=== PATIENT | male | born 1940 | race Caucasian/White ===

== ENCOUNTER 2021-07-11 19:53 | Observation (INO) ==
--- NOTE | 2021-07-11 20:14 | Emergency Department Note ---
History of Present Illness General Chief complaint: Syncope Time Seen by Provider: 07/11/21 19:57 Source: patient and EMS History of Present Illness Provider complaint: Altered mental status syncope versus seizure Onset (ago): hour(s) 1 Associated symptoms: no chest pain, no cough, no fever/chills, no headaches, no nausea/vomiting or no shortness of breath 81-year-old male presents emergency department via EMS. Per EMS they received a phone call approximately 1 hour ago that the patient should not was at a local grocery store and he went unresponsive. EMS reports that the call initially stated the patient had decreased respirations, decreased blood pressure, and decreased heart rate, the patient urinated on self and his left arm was tensed up. EMS states when they arrived, the patient was responsive, his blood pressure was normal, his heart rate was normal, his respiratory rate was normal and the patient was in no acute distress. Patient states he does not remember what happened. There is no reported history of fall or trauma from bystanders or EMS. Patient states he does not have any medical problems does not see a doctor. Home Medications Medication Instructions Recorded Confirmed Type ascorbic acid (vitamin C) 500 mg 0 mg PO DAILY 07/11/21 07/11/21 History tablet (Vitamin C) glucosamine-chondroitin 250 mg-200 1 tab PO DAILY 07/11/21 07/11/21 History mg tablet (Osteo Bi-Flex) ibuprofen 200 mg tablet 400 mg PO DIRECTED PRN 07/11/21 07/11/21 History multivitamin 1 tab PO DAILY 07/11/21 07/11/21 History Allergies Allergy/AdvReac Type Severity Reaction Status Date / Time No Known Allergies Allergy Verified 07/11/21 20:30 Past Med/Surg History Medical History (Updated 07/11/21 @ 22:52 by Minh Crespo) Age related osteoporosis No pertinent family history Surgical History (Updated 07/11/21 @ 20:13 by Minh Crespo) S/P cholecystectomy Social History Feels Safe at Home: Yes Review of Systems A total of 10 systems reviewed and were otherwise negative Physical Exam Vital Signs Vital Signs - 24 hr 07/11/21 20:09 07/11/21 20:31 07/11/21 21:34 Temperature 36.9 C Temperature Source Oral Pulse Rate 73 74 Pulse Rate [Right Finger] 74 68 Pulse Rhythm Regular Pulse Strength Normal Respiratory Rate 15 15 15 Respiratory Effort / Characteristics Non-Labored Respiratory Depth Normal Normal Respiratory Pattern Regular Blood Pressure 181/112 H Blood Pressure [Right Arm] 194/104 H 202/106 H Blood Pressure Mean 135 Blood Pressure Mean [Right Arm] 134 138 Blood Pressure Position [Right Arm] Sitting Pulse Oximetry 96 97 94 Oxygen Delivery Method Room Air Room Air Room Air Sepsis New/Unexplained Change in Mental Status Yes Sepsis Action Taken by Nursing No Action Required Physical Exam GENERAL: He is oriented to person, place, and time. He appears well-developed and well-nourished. He does not appear distressed. HENT: Exam performed. - Head: Normocephalic and atraumatic. - Right Ear: External ear normal. No mastoid tenderness. - Left Ear: External ear normal. No mastoid tenderness. - Mouth/Throat: The oropharynx is clear and moist. No trismus in the jaw. No dental abscesses or uvula swelling. No oropharyngeal exudate or tonsillar abscesses. EYES: Conjunctivae and EOM are normal. Pupils are equal, round, and reactive to light. Right eye exhibits no discharge. Left eye exhibits no discharge. No scleral icterus. NECK: Normal range of motion. Neck supple. No JVD present. No spinous process tenderness present. No carotid bruit present. No rigidity. No tracheal deviation and normal range of motion present. No Brudzinski's sign and no Kernig's sign noted. CV: Normal rate, regular rhythm, normal heart sounds and intact distal pulses. There is no peripheral edema. Palpable radial pulses bue. PULM/CHEST: Effort normal and breath sounds normal. No respiratory distress. No stridor. He has no wheezes. He has no rales. - Chest Wall: He exhibits no tenderness. ABD: The abdomen is soft. Bowel sounds are normal. He has no distension. No mass is present. There is no tenderness. There is no rebound, no guarding, no Solorio's sign and no tenderness at McBurney's point. Rovsig negative. MUSC/SKEL: Normal range of motion. There is no peripheral edema, tenderness or deformity. LYMPH: No cervical adenopathy. NEURO: He is alert and oriented to person, place, and time. He has normal strength. No cranial nerve deficit or sensory deficit. Coordination and gait normal. GCS eye subscore is 4. GCS verbal subscore is 5. GCS motor subscore is 6. Cerebellar tests wnl. SKIN: Skin is warm and dry. He is not diaphoretic. PSYCH: He has a normal mood and affect. Behavior is normal. Judgment and thought content normal. Course Course 1956: The patient was evaluated in room A11. A complete history and physical exam was performed Cardiac monitoring: An order was placed for continuous cardiac monitoring. The monitor shows a rate of 80 with sinus rhythm 2232: Vital signs stable. Labs within normal limits with exception of creatinine 1.6 and lactic acid 2.1. Prolactin level within normal. Imaging within normal limits. Is unclear if the patient has syncopal episode versus seizure. It does seem more likely of a seizure given the reported history of urinary incontinence and the elevated lactic acid level. Patient has no fever or elevated white blood cell count I think that the lactic acidemia is due to any infectious source. Patient is remained neurologically intact not reporting any headaches chest pain or difficulty breathing during his entire emergency department stay. Patient's son is at bedside. The son, the patient, and I had a long discussion about the patient's disposition and the patient does not have a regular care with primary care physician. Given his increased age and the questionable syncope versus seizure the son, the patient, and I felt it would be in the patient's best interest to be admitted for further work-up. Spoke with [facility] hospitalist Dr. Altamirano who will evaluate the patient for admission. Administered Medications Lactated Ringer's (Lr) 1,000 mls @ 60 mls/hr IV .[id number] ONE Stop: 07/12/21 14:48 Last Admin: 07/11/21 22:45 Dose: 60 mls/hr Documented by: [id number] Discontinued Medications Amlodipine Besylate (Amlodipine Besylate 5 Mg Tab) 2.5 mg PO NOW ONE Stop: 07/11/21 22:09 Last Admin: 07/11/21 22:45 Dose: 2.5 mg Documented by: [id number] Medical Decision Making Laboratory Data Result diagrams: 07/11/21 20:17 07/11/21 20:17 Lab Results 07/11/21 07/11/21 07/11/21 Range/Units 20:17 20:17 20:17 WBC 8.09 (4.8-10.8) K/uL RBC 4.59 L (4.7-6.1) M/uL Hgb 14.7 (14.0-18.0) g/dL Hct 43.2 (42-52) % MCV 94.1 (80-100) fL MCH 32.0 (25-34) pg MCHC 34.0 (32-36) g/dL RDW Std Deviation 45.1 (36.4-46.3) fL RDW Coeff of Preethi 13.1 (11.5-14.5) % Plt Count 251 (130-400) K/uL MPV 10.0 (7.4-10.4) fL Immature Gran % (Auto) 0.1 % Neut % (Auto) 53.6 % Lymph % (Auto) 33.1 % [place] % (Auto) 7.3 % Eos % (Auto) 5.3 % Baso % (Auto) 0.6 % Neut # (Auto) 4.33 (1.4-6.5) K/uL Lymph # (Auto) 2.68 (1.2-3.4) K/uL [place] # (Auto) 0.59 (0.11-0.59) K/uL Eos # (Auto) 0.43 (0-0.5) K/uL Baso # (Auto) 0.05 (0-0.2) K/uL Immature Gran # (Auto) 0.01 (0.00-0.02) K/uL PT 10.3 (9.0-12.0) Seconds INR 1.0 (0.9-1.1) APTT 24.2 (21.0-31.0) Seconds PTT Ratio 0.9 Sodium 143 (136-145) mmol/L Potassium 3.7 (3.5-5.1) mmol/L Chloride 109 H (98-107) mmol/L Carbon Dioxide 26 (21-32) mmol/L Anion Gap 8.0 (3-11) BUN 23 H (7-18) mg/dl Creatinine 1.61 H (0.6-1.4) mg/dl Est Cr Clr Drug Dosing 49.3 ml/min Est GFR ( Amer) 45.8 ml/min Est GFR (Non-Af Amer) 39.5 ml/min BUN/Creatinine Ratio 14.0 (10-20) Glucose 128 H (70-99) mg/dl POC Glucose (70-99) mg/dl Lactate (0.4-2.0) mmol/L Calcium 8.5 (8.5-10.1) mg/dl Magnesium 2.3 (1.8-2.4) mg/dl Total Bilirubin 0.5 (0.2-1) mg/dl Direct Bilirubin 0.1 (0-0.2) mg/dl AST 26 (15-37) U/L ALT 24 (12-78) U/L Alkaline Phosphatase 106 (45-117) U/L Troponin I < 0.015 (0-0.045) ng/ml Total Protein 7.4 (6.4-8.2) gm/dl Albumin 3.3 L (3.4-5.0) gm/dl Lipase (73-393) U/L TSH (0.300-4.500) uIu/ml Prolactin ng/ml Urine Color Urine Appearance (Clear) Urine pH (4.5-7.5) Ur Specific [place] (1.000-1.030) Urine Protein (Negative) Urine Glucose (UA) (Negative) Urine Ketones (Negative) Urine Blood (Negative) Urine Nitrite (Negative) Urine Bilirubin (Negative) Urine Urobilinogen (Negative) Ur Leukocyte Esterase (Negative) SARS-CoV-2, RNA, NAAT (NEGATIVE) 07/11/21 07/11/21 07/11/21 Range/Units 20:17 20:17 20:17 WBC (4.8-10.8) K/uL RBC (4.7-6.1) M/uL Hgb (14.0-18.0) g/dL Hct (42-52) % MCV (80-100) fL MCH (25-34) pg MCHC (32-36) g/dL RDW Std Deviation (36.4-46.3) fL RDW Coeff of Preethi (11.5-14.5) % Plt Count (130-400) K/uL MPV (7.4-10.4) fL Immature Gran % (Auto) % Neut % (Auto) % Lymph % (Auto) % [place] % (Auto) % Eos % (Auto) % Baso % (Auto) % Neut # (Auto) (1.4-6.5) K/uL Lymph # (Auto) (1.2-3.4) K/uL [place] # (Auto) (0.11-0.59) K/uL Eos # (Auto) (0-0.5) K/uL Baso # (Auto) (0-0.2) K/uL Immature Gran # (Auto) (0.00-0.02) K/uL PT (9.0-12.0) Seconds INR (0.9-1.1) APTT (21.0-31.0) Seconds PTT Ratio Sodium (136-145) mmol/L Potassium (3.5-5.1) mmol/L Chloride (98-107) mmol/L Carbon Dioxide (21-32) mmol/L Anion Gap (3-11) BUN (7-18) mg/dl Creatinine (0.6-1.4) mg/dl Est Cr Clr Drug Dosing ml/min Est GFR ( Amer) ml/min Est GFR (Non-Af Amer) ml/min BUN/Creatinine Ratio (10-20) Glucose (70-99) mg/dl POC Glucose (70-99) mg/dl Lactate 2.1 H* (0.4-2.0) mmol/L Calcium (8.5-10.1) mg/dl Magnesium (1.8-2.4) mg/dl Total Bilirubin (0.2-1) mg/dl Direct Bilirubin (0-0.2) mg/dl AST (15-37) U/L ALT (12-78) U/L Alkaline Phosphatase (45-117) U/L Troponin I (0-0.045) ng/ml Total Protein (6.4-8.2) gm/dl Albumin (3.4-5.0) gm/dl Lipase 200 (73-393) U/L TSH (0.300-4.500) uIu/ml Prolactin 9.88 ng/ml Urine Color Urine Appearance (Clear) Urine pH (4.5-7.5) Ur Specific [place] (1.000-1.030) Urine Protein (Negative) Urine Glucose (UA) (Negative) Urine Ketones (Negative) Urine Blood (Negative) Urine Nitrite (Negative) Urine Bilirubin (Negative) Urine Urobilinogen (Negative) Ur Leukocyte Esterase (Negative) SARS-CoV-2, RNA, NAAT (NEGATIVE) 07/11/21 07/11/21 07/11/21 Range/Units 20:17 20:30 22:40 WBC (4.8-10.8) K/uL RBC (4.7-6.1) M/uL Hgb (14.0-18.0) g/dL Hct (42-52) % MCV (80-100) fL MCH (25-34) pg MCHC (32-36) g/dL RDW Std Deviation (36.4-46.3) fL RDW Coeff of Preethi (11.5-14.5) % Plt Count (130-400) K/uL MPV (7.4-10.4) fL Immature Gran % (Auto) % Neut % (Auto) % Lymph % (Auto) % [place] % (Auto) % Eos % (Auto) % Baso % (Auto) % Neut # (Auto) (1.4-6.5) K/uL Lymph # (Auto) (1.2-3.4) K/uL [place] # (Auto) (0.11-0.59) K/uL Eos # (Auto) (0-0.5) K/uL Baso # (Auto) (0-0.2) K/uL Immature Gran # (Auto) (0.00-0.02) K/uL PT (9.0-12.0) Seconds INR (0.9-1.1) APTT (21.0-31.0) Seconds PTT Ratio Sodium (136-145) mmol/L Potassium (3.5-5.1) mmol/L Chloride (98-107) mmol/L Carbon Dioxide (21-32) mmol/L Anion Gap (3-11) BUN (7-18) mg/dl Creatinine (0.6-1.4) mg/dl Est Cr Clr Drug Dosing ml/min Est GFR ( Amer) ml/min Est GFR (Non-Af Amer) ml/min BUN/Creatinine Ratio (10-20) Glucose (70-99) mg/dl POC Glucose 114 H (70-99) mg/dl Lactate (0.4-2.0) mmol/L Calcium (8.5-10.1) mg/dl Magnesium (1.8-2.4) mg/dl Total Bilirubin (0.2-1) mg/dl Direct Bilirubin (0-0.2) mg/dl AST (15-37) U/L ALT (12-78) U/L Alkaline Phosphatase (45-117) U/L Troponin I (0-0.045) ng/ml Total Protein (6.4-8.2) gm/dl Albumin (3.4-5.0) gm/dl Lipase (73-393) U/L TSH 2.830 (0.300-4.500) uIu/ml Prolactin ng/ml Urine Color Urine Appearance (Clear) Urine pH (4.5-7.5) Ur Specific [place] (1.000-1.030) Urine Protein (Negative) Urine Glucose (UA) (Negative) Urine Ketones (Negative) Urine Blood (Negative) Urine Nitrite (Negative) Urine Bilirubin (Negative) Urine Urobilinogen (Negative) Ur Leukocyte Esterase (Negative) SARS-CoV-2, RNA, NAAT NEGATIVE (NEGATIVE) 07/11/21 Range/Units 22:40 WBC (4.8-10.8) K/uL RBC (4.7-6.1) M/uL Hgb (14.0-18.0) g/dL Hct (42-52) % MCV (80-100) fL MCH (25-34) pg MCHC (32-36) g/dL RDW Std Deviation (36.4-46.3) fL RDW Coeff of Preethi (11.5-14.5) % Plt Count (130-400) K/uL MPV (7.4-10.4) fL Immature Gran % (Auto) % Neut % (Auto) % Lymph % (Auto) % [place] % (Auto) % Eos % (Auto) % Baso % (Auto) % Neut # (Auto) (1.4-6.5) K/uL Lymph # (Auto) (1.2-3.4) K/uL [place] # (Auto) (0.11-0.59) K/uL Eos # (Auto) (0-0.5) K/uL Baso # (Auto) (0-0.2) K/uL Immature Gran # (Auto) (0.00-0.02) K/uL PT (9.0-12.0) Seconds INR (0.9-1.1) APTT (21.0-31.0) Seconds PTT Ratio Sodium (136-145) mmol/L Potassium (3.5-5.1) mmol/L Chloride (98-107) mmol/L Carbon Dioxide (21-32) mmol/L Anion Gap (3-11) BUN (7-18) mg/dl Creatinine (0.6-1.4) mg/dl Est Cr Clr Drug Dosing ml/min Est GFR ( Amer) ml/min Est GFR (Non-Af Amer) ml/min BUN/Creatinine Ratio (10-20) Glucose (70-99) mg/dl POC Glucose (70-99) mg/dl Lactate (0.4-2.0) mmol/L Calcium (8.5-10.1) mg/dl Magnesium (1.8-2.4) mg/dl Total Bilirubin (0.2-1) mg/dl Direct Bilirubin (0-0.2) mg/dl AST (15-37) U/L ALT (12-78) U/L Alkaline Phosphatase (45-117) U/L Troponin I (0-0.045) ng/ml Total Protein (6.4-8.2) gm/dl Albumin (3.4-5.0) gm/dl Lipase (73-393) U/L TSH (0.300-4.500) uIu/ml Prolactin ng/ml Urine Color Yellow Urine Appearance Clear (Clear) Urine pH 5.0 (4.5-7.5) Ur Specific [place] 1.015 (1.000-1.030) Urine Protein Negative (Negative) Urine Glucose (UA) Negative (Negative) Urine Ketones Negative (Negative) Urine Blood Negative (Negative) Urine Nitrite Negative (Negative) Urine Bilirubin Negative (Negative) Urine Urobilinogen Negative (Negative) Ur Leukocyte Esterase Negative (Negative) SARS-CoV-2, RNA, NAAT (NEGATIVE) Imaging Data Radiologist's Impression: Chest X-Ray 07/11/21 20:08 XR chest 1V portable CLINICAL HISTORY: ams. Evaluate cardiopulmonary status COMPARISON STUDY: No previous studies for comparison. TECHNIQUE: 1 view of the chest FINDINGS: Single frontal view of the chest demonstrates the cardiomediastinal silhouette to be within normal limits. There is a decreased inspiratory effort with elevation of the hemidiaphragms and crowding of the bronchovascular markings at the lung bases and centrally. The lungs are clear of alveolar opacities. There is no evidence for pleural effusion. There is no evidence for vascular congestion. There is no acute osseous pathology. IMPRESSION: There is a decreased inspiratory effort with otherwise no acute chest disease. ACT 112: Negative or not required by law. Electronically signed by: Eyad Cespedes M.D. 07/11/2021 8:[address] 07/11/21 20:08 CT head/brain wo con CLINICAL HISTORY: syncope vs seizure COMPARISON STUDY: No previous studies for comparison. CT DOSE: 1878.68 mGy.cm TECHNIQUE: Standard CT of the Brain was performed without IV contrast. A dose lowering technique was utilized adhering to the principles of ALARA. FINDINGS: Extraaxial space: There is no evidence for subdural hematoma. There are no extra-axial fluid collections. Ventricles and cisterns: The ventricles are normal in size and configuration. There is no evidence for midline shift or mass effect. Parenchyma: There is no subarachnoid or intraparenchymal hemorrhage. There is no evidence for an acute infarct or cerebral edema. There is homogeneous attenuation of the brain parenchyma. There are no gross mass lesions. Osseous structures: There is no evidence for an acute fracture. The visualized paranasal sinuses are clear. The mastoid air cells are clear bilaterally. Soft tissues: There is no evidence for focal soft tissue swelling. IMPRESSION: No acute intracerebral pathology. ACT 112: Negative or not required by law. Electronically signed by: Eyad Cespedes M.D. 07/11/2021 9:01 PM ECG Data Indication: + syncope Rate (beats per minute): 76 Rhythm: + normal sinus ECG ST segments: + Normal ST segments ECG Findings: + LVH Additional Comments: [place] 200 QRS 148 QTC 477 bifascicular block present. MDM Narrative Vital signs stable. Labs within normal limits with exception of creatinine 1.6 and lactic acid 2.1. Prolactin level within normal. Imaging within normal limits. Is unclear if the patient has syncopal episode versus seizure. It does seem more likely of a seizure given the reported history of urinary incontinence and the elevated lactic acid level. Patient has no fever or elevated white blood cell count I think that the lactic acidemia is due to any infectious source. Patient is remained neurologically intact not reporting any headaches chest pain or difficulty breathing during his entire emergency department stay. Patient's son is at bedside. The son, the patient, and I had a long discussion about the patient's disposition and the patient does not have a regular care with primary care physician. Given his increased age and the questionable syncope versus seizure the son, the patient, and I felt it would be in the patient's best interest to be admitted for further work-up. Spoke with [facility] hospitalist Dr. Altamirano who will evaluate the patient for admission. Impression & Plan Observed seizure-like activity Discharge Plan Visit Data Chief Complaint: Syncope ED Provider: Minh Crespo Discharge Problem: Observed seizure-like activity Patient Disposition: Being Evaluated by Hospitalist Forms Stand Alone Forms: My [facility] Prescriptions Prescriptions: No Action multivitamin Tablet 1 tab PO DAILY RF: 0 ascorbic acid (vitamin C) [Vitamin C] 500 mg Tablet 0 mg PO DAILY RF: 0 ibuprofen 200 mg Tablet 400 mg PO DIRECTED PRN (Reason: Pain) RF: 0 glucosamine-chondroitin [Osteo Bi-Flex] 250-200 mg Tablet 1 tab PO DAILY RF: 0 Referrals Referrals: PCP,NO [Physician] -
[2021-07-11 20:29] LABS: Basophils # (auto) 0.05 K/uL (0-0.2); Basophils % (auto) 0.6 %; Eosinophils # (auto) 0.43 K/uL (0-0.5); Eosinophils % (auto) 5.3 %; Hematocrit (blood only) 43.2 % (42-52); Hemoglobin 14.7 g/dL (14.0-18.0); Immature Granulocytes # (auto) 0.01 K/uL (0.00-0.02); Immature Granulocytes % (auto) 0.1 %; Lymphocytes # (auto) 2.68 K/uL (1.2-3.4); Lymphocytes % (auto) 33.1 %; Mean Corpuscular Volume 94.1 fL (80-100); Monocytes # (auto) 0.59 K/uL (0.11-0.59); Monocytes % (auto) 7.3 %; Neutrophils # (auto) 4.33 K/uL (1.4-6.5); Neutrophils % (auto) 53.6 %; Platelet Count 251 K/uL (130-400); RDW Coefficient of Variation 13.1 % (11.5-14.5); RDW Standard Deviation 45.1 fL (36.4-46.3); Red Blood Count 4.59 M/uL (4.7-6.1); White Blood Count 8.09 K/uL (4.8-10.8)
[2021-07-11 20:42] LABS: Partial Thromboplastin Ratio 0.9; Partial Thromboplastin Time 24.2 Seconds (21.0-31.0); Prothrombin Time 10.3 Seconds (9.0-12.0)
--- NOTE | 2021-07-11 20:45 | XRay Report ---
XR chest 1V portable CLINICAL HISTORY: ams. Evaluate cardiopulmonary status COMPARISON STUDY: No previous studies for comparison. TECHNIQUE: 1 view of the chest FINDINGS: Single frontal view of the chest demonstrates the cardiomediastinal silhouette to be within normal li mits. There is a decreased inspiratory effort with elevation of the hemidiaphragms and crowding of th e bronchovascular markings at the lung bases and centrally. The lungs are clear of alveolar opacities . There is no evidence for pleural effusion. There is no evidence for vascular congestion. There is n o acute osseous pathology. IMPRESSION: There is a decreased inspiratory effort with otherwise no acute chest disease. ACT 112: Negative or not required by law. Electronically signed by: Eyad Cespedes M.D. 07/11/2021 8:44 PM
[2021-07-11 20:55] LABS: Alanine Aminotransferase 24 U/L (12-78); Albumin Level 3.3 gm/dl (3.4-5.0); Aspartate Aminotransferase 26 U/L (15-37); Bilirubin Direct 0.1 mg/dl (0-0.2); Blood Urea Nitrogen 23 mg/dl (7-18); Calcium 8.5 mg/dl (8.5-10.1); Carbon Dioxide 26 mmol/L (21-32); Chloride 109 mmol/L (98-107); Creatinine Clr Calc Pharmacy 49.3 ml/min; Est GFR (African American) 45.8 ml/min; Est GFR (Non-African American) 39.5 ml/min; Glucose 128 mg/dl (70-99); Magnesium 2.3 mg/dl (1.8-2.4); Potassium 3.7 mmol/L (3.5-5.1); Sodium 143 mmol/L (136-145)
[2021-07-11 21:00] LABS: Alkaline Phosphatase 106 U/L (45-117); Bilirubin,Total 0.5 mg/dl (0.2-1); Total Protein 7.4 gm/dl (6.4-8.2); Troponin I < 0.015 ng/ml (0-0.045)
--- NOTE | 2021-07-11 21:03 | CT Scan Report ---
CT head/brain wo con CLINICAL HISTORY: syncope vs seizure COMPARISON STUDY: No previous studies for comparison. CT DOSE: 1878.68 mGy.cm TECHNIQUE: Standard CT of the Brain was performed without IV contrast. A dose lowering technique was utilized adhering to the principles of ALARA. FINDINGS: Extraaxial space: There is no evidence for subdural hematoma. There are no extra-axial fluid collecti ons. Ventricles and cisterns: The ventricles are normal in size and configuration. There is no evidence f or midline shift or mass effect. Parenchyma: There is no subarachnoid or intraparenchymal hemorrhage. There is no evidence for an acu te infarct or cerebral edema. There is homogeneous attenuation of the brain parenchyma. There are no gross mass lesions. Osseous structures: There is no evidence for an acute fracture. The visualized paranasal sinuses are clear. The mastoid air cells are clear bilaterally. Soft tissues: There is no evidence for focal soft tissue swelling. IMPRESSION: No acute intracerebral pathology. ACT 112: Negative or not required by law. Electronically signed by: Eyad Cespedes M.D. 07/11/2021 9:01 PM
[2021-07-11] MEDS ORDERED: amLODIPine BESYLATE 5 MG TAB PO ONE (22:08)
[2021-07-11] MEDS ORDERED: LACTATED RINGER'S 1,000 ML IV ONE (22:09)
[2021-07-11 23:01] LABS: Thyroid Stimulating Hormone 2.83 uIu/ml (0.300-4.500)
--- NOTE | 2021-07-11 23:06 | History & Physical Report ---
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 Heparin subcu Full code Patient son requesting updates from providers. Mr. Eduardo Flowers, contact #[phone]. Text document was generated using [email or web address] voice recognition software. It may contain grammatical or spelling errors. Kindly contact undersigned for clarification of any documentation item in question. History of Present Illness Chief Complaint: Unresponsiveness as per records Primary Care Provider: MORAIMA ARECHIGA PA-C History obtained from patient, family, and records. History somewhat limited from patient secondary to hearing impairment. Medical history significant for hypertension (currently not on medications), osteoarthritis. Patient was at dining with his buddies at a local grocery/sandwich shop when he became unresponsive for about 10 minutes as per son. May have passed out as per patient. Patient did not fall down. Eyes closed with pulse and breathing as per son. No witnessed seizures although patient left arm somewhat tensed up during event. No witnessed seizures/incontinence as per patient/son. Patient denies headache, chest pain, S OB symptoms. Syncopal event with unrecalled details of few years ago as per patient. Patient awake, responsive and with normal vital signs upon arrival of EMS. Orthostatic vitals at the ER were positive. 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 Allergies Allergy/AdvReac Type Severity Reaction Status Date / Time No Known Allergies Allergy Verified 07/11/21 20:30 Home Medications Medication Instructions Recorded Confirmed Type ascorbic acid (vitamin C) 500 mg 0 mg PO DAILY 07/11/21 07/11/21 History tablet (Vitamin C) glucosamine-chondroitin 250 mg-200 1 tab PO DAILY 07/11/21 07/11/21 History mg tablet (Osteo Bi-Flex) ibuprofen 200 mg tablet 400 mg PO DIRECTED PRN 07/11/21 07/11/21 History multivitamin 1 tab PO DAILY 07/11/21 07/11/21 History Past Med/Surg History Medical History (Updated 07/12/21 @ 05:43 by Gregor Adkins MD) Age related osteoporosis No pertinent family history Surgical History (Updated 07/11/21 @ 20:13 by Minh Crespo) S/P cholecystectomy Social History Smoking Status: Never smoker Hx Alcohol Use: No Hx Substance Use: No Preferred Language: Filipino 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 Beliefs That Will Affect Care: None Current Living Situation: Alone Feels Safe at Home: Yes Safety Concerns: Feels Safe At This Time Assistive Devices: None Assistive Devices Comment: pt wears glasses for driving Review of Systems Review of Systems: As per HPI, all 10 systems reviewed, all other ROS negative Physical Exam Physical Exam: GENERAL: Comfortable, obese, hard of hearing, no respiratory distress SKIN: Normal color, warm HEENT: [place] palpebral conjunctivae, no ptosis, dry buccal mucosa NECK : Supple, no tenderness CHEST : CTA, no tenderness HEART : RRR, no obvious murmurs ABDOMEN: Some distention, nontender EXTREMITIES : No LE swelling/tenderness, no other conspicuous deformities noted NEUROLOGIC : Coherent, no facial asymmetry, hard of hearing, no other gross focality Results & Data Results & Data ([facility]) Vital Signs (Past 12 Hours) Vital Signs Temp Pulse Pulse Resp BP BP Pulse Ox 07/11/21 21:34 68 15 202/106 H 94 07/11/21 20:31 74 74 15 194/104 H 97 07/11/21 20:09 36.9 C 73 15 181/112 H 96 Laboratory Results Laboratory Results WBC 8.09 K/uL (4.8-10.8) 07/11/21 20:17 RBC 4.59 M/uL (4.7-6.1) L 07/11/21 20:17 Hgb 14.7 g/dL (14.0-18.0) 07/11/21 20:17 Hct 43.2 % (42-52) 07/11/21 20:17 MCV 94.1 fL (80-100) 07/11/21 20:17 MCH 32.0 pg (25-34) 07/11/21 20:17 MCHC 34.0 g/dL (32-36) 07/11/21 20:17 RDW Std Deviation 45.1 fL (36.4-46.3) 07/11/21 20:17 RDW Coeff of Preethi 13.1 % (11.5-14.5) 07/11/21 20:17 Plt Count 251 K/uL (130-400) 07/11/21 20:17 MPV 10.0 fL (7.4-10.4) 07/11/21 20:17 Immature Gran % (Auto) 0.1 % 07/11/21 20:17 Neut % (Auto) 53.6 % 07/11/21 20:17 Lymph % (Auto) 33.1 % 07/11/21 20:17 Meagher % (Auto) 7.3 % 07/11/21 20:17 Eos % (Auto) 5.3 % 07/11/21 20:17 Baso % (Auto) 0.6 % 07/11/21 20:17 Neut # (Auto) 4.33 K/uL (1.4-6.5) 07/11/21 20:17 Lymph # (Auto) 2.68 K/uL (1.2-3.4) 07/11/21 20:17 Meagher # (Auto) 0.59 K/uL (0.11-0.59) 07/11/21 20:17 Eos # (Auto) 0.43 K/uL (0-0.5) 07/11/21 20:17 Baso # (Auto) 0.05 K/uL (0-0.2) 07/11/21 20:17 Immature Gran # (Auto) 0.01 K/uL (0.00-0.02) 07/11/21 20:17 PT 10.3 Seconds (9.0-12.0) 07/11/21 20:17 INR 1.0 (0.9-1.1) 07/11/21 20:17 APTT 24.2 Seconds (21.0-31.0) 07/11/21 20:17 PTT Ratio 0.9 07/11/21 20:17 Sodium 143 mmol/L (136-145) 07/11/21 20:17 Potassium 3.7 mmol/L (3.5-5.1) 07/11/21 20:17 Chloride 109 mmol/L (98-107) H 07/11/21 20:17 Carbon Dioxide 26 mmol/L (21-32) 07/11/21 20:17 Anion Gap 8.0 (3-11) 07/11/21 20:17 BUN 23 mg/dl (7-18) H 07/11/21 20:17 Creatinine 1.61 mg/dl (0.6-1.4) H 07/11/21 20:17 Est Cr Clr Drug Dosing 49.3 ml/min 07/11/21 20:17 Est GFR ( Amer) 45.8 ml/min 07/11/21 20:17 Est GFR (Non-Af Amer) 39.5 ml/min 07/11/21 20:17 BUN/Creatinine Ratio 14.0 (10-20) 07/11/21 20:17 Glucose 128 mg/dl (70-99) H 07/11/21 20:17 POC Glucose 114 mg/dl (70-99) H 07/11/21 20:30 Lactate 2.1 mmol/L (0.4-2.0) H* 07/11/21 20:17 Calcium 8.5 mg/dl (8.5-10.1) 07/11/21 20:17 Magnesium 2.3 mg/dl (1.8-2.4) 07/11/21 20:17 Total Bilirubin 0.5 mg/dl (0.2-1) 07/11/21 20:17 Direct Bilirubin 0.1 mg/dl (0-0.2) 07/11/21 20:17 AST 26 U/L (15-37) 07/11/21 20:17 ALT 24 U/L (12-78) 07/11/21 20:17 Alkaline Phosphatase 106 U/L (45-117) 07/11/21 20:17 Troponin I < 0.015 ng/ml (0-0.045) 07/11/21 20:17 Total Protein 7.4 gm/dl (6.4-8.2) 07/11/21 20:17 Albumin 3.3 gm/dl (3.4-5.0) L 07/11/21 20:17 Lipase 200 U/L (73-393) 07/11/21 20:17 TSH 2.830 uIu/ml (0.300-4.500) 07/11/21 20:17 Prolactin 9.88 ng/ml 07/11/21 20:17 Impressions Chest X-Ray 07/11/21 20:08 XR chest 1V portable CLINICAL HISTORY: ams. Evaluate cardiopulmonary status COMPARISON STUDY: No previous studies for comparison. TECHNIQUE: 1 view of the chest FINDINGS: Single frontal view of the chest demonstrates the cardiomediastinal silhouette to be within normal limits. There is a decreased inspiratory effort with elevation of the hemidiaphragms and crowding of the bronchovascular markings at the lung bases and centrally. The lungs are clear of alveolar opacities. There is no evidence for pleural effusion. There is no evidence for vascular congestion. There is no acute osseous pathology. IMPRESSION: There is a decreased inspiratory effort with otherwise no acute chest disease. ACT 112: Negative or not required by law. Electronically signed by: Eyad Cespedes M.D. 07/11/2021 8:[address] 07/11/21 20:08 CT head/brain wo con CLINICAL HISTORY: syncope vs seizure COMPARISON STUDY: No previous studies for comparison. CT DOSE: 1878.68 mGy.cm TECHNIQUE: Standard CT of the Brain was performed without IV contrast. A dose lowering technique was utilized adhering to the principles of ALARA. FINDINGS: Extraaxial space: There is no evidence for subdural hematoma. There are no extra-axial fluid collections. Ventricles and cisterns: The ventricles are normal in size and configuration. There is no evidence for midline shift or mass effect. Parenchyma: There is no subarachnoid or intraparenchymal hemorrhage. There is no evidence for an acute infarct or cerebral edema. There is homogeneous attenuation of the brain parenchyma. There are no gross mass lesions. Osseous structures: There is no evidence for an acute fracture. The visualized paranasal sinuses are clear. The mastoid air cells are clear bilaterally. Soft tissues: There is no evidence for focal soft tissue swelling. IMPRESSION: No acute intracerebral pathology. ACT 112: Negative or not required by law. Electronically signed by: Eyad Cespedes M.D. 07/11/2021 9:01 PM Diagnostic Findings EKG as per my interpretation:Rate 75, LAD, LAFB, RBBB, LVH, no ischemia
[2021-07-11 23:19] LABS: Appearance Urine Clear (Clear); Bilirubin Urine Negative (Negative); Blood Urine Negative (Negative); Color Urine Yellow; Glucose Urine UA Negative (Negative); Ketones Urine Negative (Negative); Leukocyte Esterase Urine Negative (Negative); Nitrite Urine Negative (Negative); Protein Urine Negative (Negative); Specific Gravity Urine 1.015 (1.000-1.030); Urobilinogen Urine Negative (Negative)
[2021-07-12] MEDS ORDERED: hydrALAZINE HCL 20 MG/ML VIAL IV STA (01:03)
[2021-07-12] MEDS ORDERED: amLODIPine BESYLATE 5 MG TAB PO ONE (01:03)
[2021-07-12] MEDS ORDERED: ACETAMINOPHEN 325 MG TAB PO PRN (02:35)
[2021-07-12] MEDS ORDERED: LORazepam 1 MG/2 ML VIAL IV PRN (02:35)
[2021-07-12 03:15] LABS: Basophils # (auto) 0.04 K/uL (0-0.2); Basophils % (auto) 0.5 %; Eosinophils # (auto) 0.24 K/uL (0-0.5); Eosinophils % (auto) 2.9 %; Hematocrit (blood only) 39.8 % (42-52); Hemoglobin 13.7 g/dL (14.0-18.0); Immature Granulocytes # (auto) 0.01 K/uL (0.00-0.02); Immature Granulocytes % (auto) 0.1 %; Lymphocytes # (auto) 2.15 K/uL (1.2-3.4); Mean Corpuscular Hemoglobin 31.8 pg (25-34); Mean Corpuscular Hgb Conc 34.4 g/dL (32-36); Mean Corpuscular Volume 92.3 fL (80-100); Mean Platelet Volume 9.6 fL (7.4-10.4); Monocytes # (auto) 0.56 K/uL (0.11-0.59); Monocytes % (auto) 6.8 %; Neutrophils # (auto) 5.26 K/uL (1.4-6.5); Neutrophils % (auto) 63.7 %; Platelet Count 220 K/uL (130-400); RDW Standard Deviation 44.4 fL (36.4-46.3); Red Blood Count 4.31 M/uL (4.7-6.1); White Blood Count 8.26 K/uL (4.8-10.8)
[2021-07-12 03:32] LABS: BUN Creatinine Ratio 16.7 (10-20); Calcium 8.7 mg/dl (8.5-10.1); Est GFR (African American) 54.2 ml/min; Est GFR (Non-African American) 46.8 ml/min; Potassium 3.5 mmol/L (3.5-5.1)
[2021-07-12] MEDS: HEPARIN SOD 5,000 UNIT/0.5 ML VIAL SQ SCH ×3 (06:12→21:33)
[2021-07-12] MEDS: MULTIVITAMIN TAB PO SCH (07:34)
[2021-07-12 07:46] LABS: Estimated Average Glucose 111 mg/dl; Hemoglobin A1C 5.5 % (4.5-5.6)
--- NOTE | 2021-07-12 08:53 | Electrocardiogram Report ---
Test Reason : Blood Pressure : / mmHG Vent. Rate : 076 BPM Atrial Rate : 076 BPM P-R Int : 200 ms QRS Dur : 148 ms QT Int : 424 ms P-R-T Axes : 033 -79 036 degrees QTc Int : 477 ms Poor data quality, interpretation may be adversely affected Normal sinus rhythm Right bundle branch block Left anterior fascicular block Bifascicular block Moderate voltage criteria for LVH, may be normal variant Abnormal ECG No previous ECGs available Confirmed by Contreras Aj ([id number]) on 07/12/2021 8:52:33 AM Referred By: REFERRED SELF Confirmed By:Lg Aj
[2021-07-12] MEDS ORDERED: amLODIPine BESYLATE 5 MG TAB PO SCH (09:00)
--- NOTE | 2021-07-12 13:18 | Hospitalist Progress Note ---
Date of Service July 12, 2021 Assessment & Plan (1) Hypertensive urgency: Plan: Hydralazine 10mg IV and amlodipine total 7.5mg PO given overnight. BP still 177 systolic this am. Clinical picture is concerning for long-standing uncontrolled blood pressure with EKG changes. He gets his medical care in [place], [place] and records/vitals review is unavailable at this time. He denies any headache, chest pain or other symptoms. He reports chronic balance issues and positional orthostasis that are long-standing. last year and he lives alone. There are no other apparent infections or issues with glucose. He remains asymptomatic. At this time echo is pending. I feel he should stay in the hospital and be further evaluated by Cardiology, and started on a more successful blood pressure regimen (defer this to political research scientist) with a stable blo od pressure prior to dc to home. This will also given time for his echo to return. (2) Syncope: Plan: EMS reports that the call initially stated the patient had decreased respirations, decreased blood pressure, and decreased heart rate, the patient urinated on self and his left arm was tensed up. EMS states when they arrived, the patient was responsive, his blood pressure was normal, his heart rate was normal, his respiratory rate was normal and the patient was in no acute distress. Possible etiology include but not limited to seizure, vasovagal vs orthostatic syncope, postprandial glycemic changes, elevated blood pressure. Patient did have an elevated lactate in the ER suggestive of possible seizure. No witnesses available for comment at this time. Will consult neurology for thoughts. (3) Osteoarthritis: Plan: Takes Ibuprofen twice daily. Denies any stomach pain or blood in stool. Holding for now. (4) DVT prophylaxis: Plan: Lovenox Full Code Dispo-uncertain, pending eval by cardiology/neurology, eval by PT/OT and improvement in blood pressures. Would prefer home with home health at time of discharge. Ashley Morales DO [facility] Hospitalist. Admission and Anticipated Discharge Date Admission Date: July 11, 2021 Subjective 81 yo M with osteoarthritis and no other known medical problems presented via ambulance after an episode of syncope last evening. He reports sitting with friends for dinner at a local grocery store and had chicken fingers and trino slaw. He did not consume alcohol. He reported his vision getting blurry and subsequently remembers people around him calling his name. He didn't know what happened but he was clear. Denies any loss of bladder function. Denied any issues with word finding ability, no headache, SOB, no drooling or difficulty using arms or legs. Denies history of seizures or heart issues. He takes Motrin twice daily for chronic back pain but other pena denies any issues. Echo pending this am Telemetry reviewed with no events overnight. CT head was negative for acute intracranial abnormality BP remains elevated at 177/92 Review of Systems Review of Systems: All systems were reviewed and negative except as indicated in subjective above. Physical Exam Physical Exam: CONSTITUTIONAL: WNWD, vitals as above, generally well- appearing, NAD EYES: EOMI bilaterally, pupils are round and equal bilaterally, normal conjunctivae, no scleral icterus ENT: external ear and nose normal, MMM NECK: trachea midline, MMM RESPIRATORY: clear to auscultation bilaterally, no crackles, rales or wheezes, normal respiratory effort CARDIOVASCULAR: regular rate and rhythm, S1 and 2 heard without murmurs, gallops or rubs, no JVD, no peripheral edema, no carotid bruits CHEST: inspection of chest was normal GASTROINTESTINAL: soft, nontender, ND, no guarding MUSCULOSKELETAL: strength 5/5 throughout, head is normocephalic and atraumatic SKIN: warm and dry NEUROLOGIC: patellar DTRs 2+ bilat. No facial palsy, no dysarthria. Touch, pain and proprioception normal. CN 2-12 grossly intact, no sensory deficit, normal cognition, normal speech, no tremor. Heel to ovalle normal. Gait not assessed. PSYCHIATRIC: alert cooperative and oriented to person, place and time. Euthymic mood, makes good eye contact, language grossly intact, recent and remote memory grossly intact. Results & Data Results & Data ([facility]) Vital Signs (Past 12 Hours) Vital Signs Temp Pulse Pulse Resp BP Pulse Ox 07/12/21 10:08 83 07/12/21 07:47 37 C 79 18 177/92 H 94 07/12/21 04:22 76 07/12/21 03:30 36.8 C 92 H 20 140/77 95 07/12/21 02:44 36.8 C 90 18 196/100 H 97 07/12/21 01:51 91 H 15 138/80 97 Laboratory Results Short CBC 07/11/21 07/12/21 Range/Units 20:17 03:06 WBC 8.09 8.26 (4.8-10.8) K/uL Hgb 14.7 13.7 L (14.0-18.0) g/dL Hct 43.2 39.8 L (42-52) % Plt Count 251 220 (130-400) K/uL BMP 07/11/21 07/12/21 20:17 03:06 Sodium 143 142 Potassium 3.7 3.5 Chloride 109 H 111 H Carbon Dioxide 26 26 BUN 23 H 23 H Creatinine 1.61 H 1.40 Glucose 128 H 120 H Calcium 8.5 8.7 Cardiac Enzymes 07/11/21 07/11/21 Range/Units 20:17 20:17 Total Creatine Kinase 163 (39-308) U/L Troponin I < 0.015 (0-0.045) ng/ml Liver Function 07/11/21 Range/Units 20:17 Total Bilirubin 0.5 (0.2-1) mg/dl Direct Bilirubin 0.1 (0-0.2) mg/dl AST 26 (15-37) U/L ALT 24 (12-78) U/L Alkaline Phosphatase 106 (45-117) U/L Albumin 3.3 L (3.4-5.0) gm/dl Urine 07/11/21 Range/Units 22:40 Urine Color Yellow Urine Appearance Clear (Clear) Urine pH 5.0 (4.5-7.5) Ur Specific [place] 1.015 (1.000-1.030) Urine Protein Negative (Negative) Urine Glucose (UA) Negative (Negative) Medications Administered Current Inpatient Medications Acetaminophen (Acetaminophen 325 Mg Tab) 650 mg PO Q4H PRN PRN Reason: Pain or Fever Stop: 08/11/21 02:34 Amlodipine Besylate (Amlodipine Besylate 5 Mg Tab) 2.5 mg PO QAM [facility] Stop: 08/11/21 08:59 Last Admin: 07/12/21 07:34 Dose: 2.5 mg Documented by: Heparin Sodium (Porcine) (Heparin Sod 5,000 Unit/0.5 Ml Vial) 5,000 units SQ Q8 JASE Stop: 08/11/21 05:59 Last Admin: 07/12/21 06:12 Dose: 5,000 units Documented by: Lactated Ringer's (Lr) 1,000 mls @ 60 mls/hr IV .[id number] ONE Stop: 07/12/21 14:48 Last Admin: 07/11/21 22:45 Dose: 60 mls/hr Documented by: Lorazepam (Ativan) 1 mg in 2 mls @ 0.5 mls/min IV Q10M PRN PRN Reason: seizures Stop: 08/11/21 02:34 Multivitamins (Multivitamin Tab) [facility] Stop: 08/11/21 08:59 Last Admin: 07/12/21 07:34 Dose: 1 tab Documented by:
--- NOTE | 2021-07-12 13:40 | Electroencephalogram ---
EEG Procedure Note Date of Service July 12, 2021 Start / End Times Start Time: 09:35 End Time: 09:[address] Gregor Adkins History An 81-year-old male with unresponsive episode. EEG performed for evaluation epileptiform activity. Home Medication List Medication Instructions Recorded Confirmed Type ascorbic acid (vitamin C) 500 mg 0 mg PO DAILY 07/11/21 07/11/21 History tablet (Vitamin C) glucosamine-chondroitin 250 mg-200 1 tab PO DAILY 07/11/21 07/11/21 History mg tablet (Osteo Bi-Flex) ibuprofen 200 mg tablet 400 mg PO DIRECTED PRN 07/11/21 07/11/21 History multivitamin 1 tab PO DAILY 07/11/21 07/11/21 History Inpatient Medication List Amlodipine Besylate (Amlodipine Besylate 5 Mg Tab) 2.5 mg PO QAM [facility] Stop: 08/11/21 08:59 Last Admin: 07/12/21 07:34 Dose: 2.5 mg Documented by: [id number] Heparin Sodium (Porcine) (Heparin Sod 5,000 Unit/0.5 Ml Vial) 5,000 units SQ Q8 [facility] Stop: 08/11/21 05:59 Last Admin: 07/12/21 06:12 Dose: 5,000 units Documented by: [id number] Lactated Ringer's (Lr) 1,000 mls @ 60 mls/hr IV .[id number] ONE Stop: 07/12/21 14:48 Last Admin: 07/11/21 22:45 Dose: 60 mls/hr Documented by: [id number] Multivitamins (Multivitamin Tab) 1 tab PO [facility] Stop: 08/11/21 08:59 Last Admin: 07/12/21 07:34 Dose: 1 tab Documented by: [id number] Discontinued Medications Amlodipine Besylate (Amlodipine Besylate 5 Mg Tab) 2.5 mg PO NOW ONE Stop: 07/11/21 22:09 Last Admin: 07/11/21 22:45 Dose: 2.5 mg Documented by: [id number] Amlodipine Besylate (Amlodipine Besylate 5 Mg Tab) 2.5 mg PO NOW ONE Stop: 07/12/21 01:04 Last Admin: 07/12/21 01:26 Dose: 2.5 mg Documented by: [id number] Hydralazine HCl (Hydralazine Hcl 20 Mg/Ml Vial) 10 mg IV NOW STA Stop: 07/12/21 01:04 Last Admin: 07/12/21 01:27 Dose: 10 mg Documented by: [id number] Description This is a 21 electrode EEG with a single channel dedicated to limited EKG. The electrodes were placed in accordance with the International 10-20 system. REPORT: At the onset of the EEG the patient is drowsy. The background is symmetric. The posterior dominant rhythm is 8-9 Hz. There is intermittent electrode artifact noted in the right parasagittal head region. Drowsiness is characterized by increased theta activity, reduced blink rate, and decreased myogenic artifact. Photic stimulation does not induce any abnormalities. No stage 2 sleep transients are seen. Interpretation This is a normal awake and drowsy routine EEG. There is no evidence of epileptiform activity.
--- NOTE | 2021-07-12 14:58 | Cardiology Consultation ---
Date of Consultation July 12, 2021 Assessment & Plan (1) Syncope: The patient was mildly hypertensive when he was admitted and has been started on amlodipine. His blood pressure has improved he has no orthostasis. As mentioned his cardiac markers are negative and his echocardiogram shows no significant valvular pathology and normal right and left ventricular systolic function. 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 It is likely the patient may need a pacemaker in the future. I would recommend that he remains on telemetry while he is in the hospital. I would also recommend a long-term monitor after he is discharged. We will follow along with you during his hospital stay. History of Present Illness Attending Physician: Ashley Morales, DO History of Present Illness This is an 81-year-old male patient who is not much for medical care. He actually has minimal past medical history but does admit he avoids doctors. He states he was hypertensive for a while and took medications but has not taken blood pressure medicines for years. He was in his usual state of good health on the day of admission. He has breakfast with his buddies at a local diner and they solve the world's problems while they are eating. They were doing this activity and the patient states that he suddenly felt a little bit queasy and passed out. His daughter was there with a couple of firefighters/strategic marketing associate and the next thing he knows is that they were yelling for him when he woke up. He had no prodrome of paresthesias or paralysis. No residual neurologic effects. He had no heart palpitations or tachycardia. No chest pain or shortness of breath. He has no complaints now in the hospital. Cardiac markers are negative. He had echocardiogram completed this admission and for his age it is pretty unremar kable. His EKG does show a right bundle branch block and a left anterior hemiblock indicating he does have some conduction system disease which may have contributed to his syncope. Allergies Allergy/AdvReac Type Severity Reaction Status Date / Time No Known Allergies Allergy Verified 07/11/21 20:30 Home Medications Medication Instructions Recorded Confirmed Type ascorbic acid (vitamin C) 500 mg 0 mg PO DAILY 07/11/21 07/11/21 History tablet (Vitamin C) glucosamine-chondroitin 250 mg-200 1 tab PO DAILY 07/11/21 07/11/21 History mg tablet (Osteo Bi-Flex) ibuprofen 200 mg tablet 400 mg PO DIRECTED PRN 07/11/21 07/11/21 History multivitamin 1 tab PO DAILY 07/11/21 07/11/21 History Patient History Medical History Age related osteoporosis No pertinent family history Surgical History S/P cholecystectomy Social History Smoking Status: Never smoker Hx Alcohol Use: No Hx Substance Use: No Preferred Language: Lao [employer] 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 All other 10 point review of systems are negative. Physical Exam Physical Exam: General: no acute distress and stated age Head: normocephalic, no masses, lesions, tenderness or abnormalities Eyes: conjunctiva are pink and non-injected, sclera clear Neck: supple, no adenopathy, no bruits, normal jugular venous pulse, no hep atojugular reflux Chest: normal shape and normal respiratory effort Lungs: clear to auscultation and percussion Cardiac Exam: - regular rate & rhythm, no murmurs gallops or rubs - normal S1, normal S2 Pulses: 2(+) throughout Abdomen: abdomen soft, non-tender, no abnormal masses and no hepatosplenomegaly Musculoskeletal: no gait disturbance, no joint inflammation, no deforming arthritis Extremities: no edema and no cyanosis Neuro: grossly normal exam Results & Data ([facility]) Vital Signs (Past 12 Hours) Vital Signs Temp Pulse Pulse Resp BP Pulse Ox 07/12/21 14:13 36.8 C 77 18 121/74 07/12/21 10:08 83 07/12/21 07:47 37 C 79 18 177/92 H 94 07/12/21 04:22 76 07/12/21 03:30 36.8 C 92 H 20 140/77 95 Laboratory Results Laboratory Results - last 24 hr 07/11/21 07/11/21 07/11/21 20:17 20:17 20:17 WBC 8.09 RBC 4.59 L Hgb 14.7 Hct 43.2 MCV 94.1 MCH 32.0 MCHC 34.0 RDW Std Deviation 45.1 RDW Coeff of Preethi 13.1 Plt Count 251 MPV 10.0 Immature Gran % (Auto) 0.1 Neut % (Auto) 53.6 Lymph % (Auto) 33.1 Island % (Auto) 7.3 Eos % (Auto) 5.3 Baso % (Auto) 0.6 Neut # (Auto) 4.33 Lymph # (Auto) 2.68 Island # (Auto) 0.59 Eos # (Auto) 0.43 Baso # (Auto) 0.05 Immature Gran # (Auto) 0.01 PT 10.3 INR 1.0 APTT 24.2 PTT Ratio 0.9 Sodium 143 Potassium 3.7 Chloride 109 H Carbon Dioxide 26 Anion Gap 8.0 BUN 23 H Creatinine 1.61 H Est Cr Clr Drug Dosing 49.3 Est GFR ( Amer) 45.8 Est GFR (Non-Af Amer) 39.5 BUN/Creatinine Ratio 14.0 Glucose 128 H POC Glucose Estimat Average Glucose Hemoglobin A1c Lactate Calcium 8.5 Magnesium 2.3 Total Bilirubin 0.5 Direct Bilirubin 0.1 AST 26 ALT 24 Alkaline Phosphatase 106 Total Creatine Kinase Troponin I < 0.015 Total Protein 7.4 Albumin 3.3 L Lipase TSH Prolactin Urine Color Urine Appearance Urine pH Ur Specific [place] Urine Protein Urine Glucose (UA) Urine Ketones Urine Blood Urine Nitrite Urine Bilirubin Urine Urobilinogen Ur Leukocyte Esterase SARS-CoV-2, RNA, NAAT 07/11/21 07/11/21 07/11/21 20:17 20:17 20:17 WBC RBC Hgb Hct MCV MCH MCHC RDW Std Deviation RDW Coeff of Preethi Plt Count MPV Immature Gran % (Auto) Neut % (Auto) Lymph % (Auto) Island % (Auto) Eos % (Auto) Baso % (Auto) Neut # (Auto) Lymph # (Auto) Island # (Auto) Eos # (Auto) Baso # (Auto) Immature Gran # (Auto) PT INR APTT PTT Ratio Sodium Potassium Chloride Carbon Dioxide Anion Gap BUN Creatinine Est Cr Clr Drug Dosing Est GFR ( Amer) Est GFR (Non-Af Amer) BUN/Creatinine Ratio Glucose POC Glucose Estimat Average Glucose Hemoglobin A1c Lactate 2.1 H* Calcium Magnesium Total Bilirubin Direct Bilirubin AST ALT Alkaline Phosphatase Total Creatine Kinase Troponin I Total Protein Albumin Lipase 200 TSH Prolactin 9.88 Urine Color Urine Appearance Urine pH Ur Specific [place] Urine Protein Urine Glucose (UA) Urine Ketones Urine Blood Urine Nitrite Urine Bilirubin Urine Urobilinogen Ur Leukocyte Esterase SARS-CoV-2, RNA, NAAT 07/11/21 07/11/21 07/11/21 20:17 20:17 20:30 WBC RBC Hgb Hct MCV MCH MCHC RDW Std Deviation RDW Coeff of Preethi Plt Count MPV Immature Gran % (Auto) Neut % (Auto) Lymph % (Auto) Island % (Auto) Eos % (Auto) Baso % (Auto) Neut # (Auto) Lymph # (Auto) Island # (Auto) Eos # (Auto) Baso # (Auto) Immature Gran # (Auto) PT INR APTT PTT Ratio Sodium Potassium Chloride Carbon Dioxide Anion Gap BUN Creatinine Est Cr Clr Drug Dosing Est GFR ( Amer) Est GFR (Non-Af Amer) BUN/Creatinine Ratio Glucose POC Glucose 114 H Estimat Average Glucose 111 Hemoglobin A1c 5.5 Lactate Calcium Magnesium Total Bilirubin Direct Bilirubin AST ALT Alkaline Phosphatase Total Creatine Kinase 163 Troponin I Total Protein Albumin Lipase TSH 2.830 Prolactin Urine Color Urine Appearance Urine pH Ur Specific [place] Urine Protein Urine Glucose (UA) Urine Ketones Urine Blood Urine Nitrite Urine Bilirubin Urine Urobilinogen Ur Leukocyte Esterase SARS-CoV-2, RNA, NAAT 07/11/21 07/11/21 07/12/21 22:40 22:40 03:06 WBC RBC Hgb Hct MCV MCH MCHC RDW Std Deviation RDW Coeff of Preethi Plt Count MPV Immature Gran % (Auto) Neut % (Auto) Lymph % (Auto) Island % (Auto) Eos % (Auto) Baso % (Auto) Neut # (Auto) Lymph # (Auto) Island # (Auto) Eos # (Auto) Baso # (Auto) Immature Gran # (Auto) PT INR APTT PTT Ratio Sodium Potassium Chloride Carbon Dioxide Anion Gap BUN Creatinine Est Cr Clr Drug Dosing Est GFR ( Amer) Est GFR (Non-Af Amer) BUN/Creatinine Ratio Glucose POC Glucose Estimat Average Glucose Hemoglobin A1c Lactate 1.2 Calcium Magnesium Total Bilirubin Direct Bilirubin AST ALT Alkaline Phosphatase Total Creatine Kinase Troponin I Total Protein Albumin Lipase TSH Prolactin Urine Color Yellow Urine Appearance Clear Urine pH 5.0 Ur Specific [place] 1.015 Urine Protein Negative Urine Glucose (UA) Negative Urine Ketones Negative Urine Blood Negative Urine Nitrite Negative Urine Bilirubin Negative Urine Urobilinogen Negative Ur Leukocyte Esterase Negative SARS-CoV-2, RNA, NAAT NEGATIVE 07/12/21 07/12/21 03:06 03:06 WBC 8.26 RBC 4.31 L Hgb 13.7 L Hct 39.8 L MCV 92.3 MCH 31.8 MCHC 34.4 RDW Std Deviation 44.4 RDW Coeff of Preethi 13.0 Plt Count 220 MPV 9.6 Immature Gran % (Auto) 0.1 Neut % (Auto) 63.7 Lymph % (Auto) 26.0 Island % (Auto) 6.8 Eos % (Auto) 2.9 Baso % (Auto) 0.5 Neut # (Auto) 5.26 Lymph # (Auto) 2.15 Island # (Auto) 0.56 Eos # (Auto) 0.24 Baso # (Auto) 0.04 Immature Gran # (Auto) 0.01 PT INR APTT PTT Ratio Sodium 142 Potassium 3.5 Chloride 111 H Carbon Dioxide 26 Anion Gap 5.0 BUN 23 H Creatinine 1.40 Est Cr Clr Drug Dosing 56.0 Est GFR ( Amer) 54.2 Est GFR (Non-Af Amer) 46.8 BUN/Creatinine Ratio 16.7 Glucose 120 H POC Glucose Estimat Average Glucose Hemoglobin A1c Lactate Calcium 8.7 Magnesium Total Bilirubin Direct Bilirubin AST ALT Alkaline Phosphatase Total Creatine Kinase Troponin I Total Protein Albumin Lipase TSH Prolactin Urine Color Urine Appearance Urine pH Ur Specific [place] Urine Protein Urine Glucose (UA) Urine Ketones Urine Blood Urine Nitrite Urine Bilirubin Urine Urobilinogen Ur Leukocyte Esterase SARS-CoV-2, RNA, NAAT Medications Administered Current Inpatient Medications Acetaminophen (Acetaminophen 325 Mg Tab) 650 mg PO Q4H PRN PRN Reason: Pain or Fever Stop: 08/11/21 02:34 Amlodipine Besylate (Amlodipine Besylate 5 Mg Tab) 2.5 mg PO QAM [facility] Stop: 08/11/21 08:59 Last Admin: 07/12/21 07:34 Dose: 2.5 mg Documented by: Heparin Sodium (Porcine) (Heparin Sod 5,000 Unit/0.5 Ml Vial) 5,000 units SQ Q8 [facility] Stop: 08/11/21 05:59 Last Admin: 07/12/21 14:19 Dose: 5,000 units Documented by: Lorazepam (Ativan) 1 mg in 2 mls @ 0.5 mls/min IV Q10M PRN PRN Reason: seizures Stop: 08/11/21 02:34 Multivitamins (Multivitamin Tab) 1 tab PO QAM [facility] Stop: 08/11/21 08:59 Last Admin: 07/12/21 07:34 Dose: 1 tab Documented by:
--- NOTE | 2021-07-12 18:40 | Magnetic Resonance Report ---
MRI OF THE BRAIN WITHOUT CONTRAST CLINICAL HISTORY: syncope, rule out stroke COMPARISON STUDY: Head CT July 11, 2021. TECHNIQUE: Utilizing a 1.5 Mari magnet and dedicated coil, multiplanar, multiecho imaging of the bra in was performed without IV contrast. FINDINGS: There are no foci of restricted diffusion to suggest acute infarct. No acute intracranial h emorrhage, midline shift or mass effect is present. Ventricular system is unremarkable. Basal cistern s are patent. No intracranial masses are identified on this unenhanced exam. Flow-voids for the major intracranial vessels are present. There is moderate atrophy. Calvarial signal is normal. Small amoun t of fluid within the right mastoid cells is present. There is minimal sinus mucosal thickening. Tiny air-fluid level within the left maxillary sinus is noted. IMPRESSION: No acute intracranial findings. ACT 112: Negative or not required by law. Electronically signed by: Neel Camp M.D. 07/12/2021 6:39 PM
[2021-07-12] MEDS ORDERED: ENOXAPARIN INJ 40 MG/0.4 ML SYR SQ SCH (21:00)
[2021-07-13] MEDS ORDERED: amLODIPine BESYLATE 5 MG TAB PO ONE
[2021-07-13] MEDS: HEPARIN SOD 5,000 UNIT/0.5 ML VIAL SQ SCH ×2 (06:15→13:32)
[2021-07-13 06:41] LABS: Hematocrit (blood only) 40.4 % (42-52); Hemoglobin 13.5 g/dL (14.0-18.0); Mean Corpuscular Hemoglobin 31.3 pg (25-34); Mean Corpuscular Hgb Conc 33.4 g/dL (32-36); Mean Corpuscular Volume 93.5 fL (80-100); Platelet Count 221 K/uL (130-400); RDW Coefficient of Variation 13.2 % (11.5-14.5); RDW Standard Deviation 45.6 fL (36.4-46.3); Red Blood Count 4.32 M/uL (4.7-6.1)
[2021-07-13 07:09] LABS: BUN Creatinine Ratio 18.7 (10-20); Calcium 8.9 mg/dl (8.5-10.1); Creatinine Clr Calc Pharmacy 62.2 ml/min; Est GFR (African American) 61.6 ml/min; Est GFR (Non-African American) 53.1 ml/min; Magnesium 2.4 mg/dl (1.8-2.4); Phosphorus 2.9 mg/dl (2.5-4.9); Potassium 3.8 mmol/L (3.5-5.1)
[2021-07-13] MEDS: MULTIVITAMIN TAB PO SCH (08:29)
[2021-07-13] MEDS ORDERED: amLODIPine BESYLATE 5 MG TAB PO SCH (09:00)
--- NOTE | 2021-07-13 09:25 | Cardiology Progress Note ---
Date of Service July 13, 2021 Assessment & Plan (1) Syncope: (2) Hypertensive urgency: (3) Bifascicular block: Plan: No arrhythmias while on telemetry. Echo is unremarkable. No recurrent syncope/near syncope since admission. He has underlying conduction system disease with Bifascicular block. Avoid AV leta blocking agents. Recommend outpatient ZIO monitor for 2 weeks. BP has trended down and controlled on amlodipine. Discharge on 5 mg. Will arrange placement of 2 week ZIO monitor upon discharge and about 4-6 week cardiology office visit to review monitor findings and reassess BP. [email or web address] and will arrange ZIO monitor placement and cardio f/u there. Patient will be contacted with these appointments. Requests/orders placed in Prior Knowledge. Case discussed with Dr. Chaudhry. Osbaldo for discharge. Admission and Anticipated Discharge Date Admission Date: July 12, 2021 Supervising Physician Co-Signing Physician Notes I am seeing the patient and examined him. I reviewed the medical record. I discussed the case with Brennan and I agree the patient can be discharged home with a long-term monitor. He does have bifascicular block on his EKG and it is likely that he may need a pacemaker in the future. Unfortunately, we need to have documented episodes of bradycardia or high-grade heart block before before putting this patient through procedure. Subjective Patient resting in bed comfortably. Voices no concerns this morning. Feels "great". Denies dizziness or lightheadedness. No near syncope/syncope since admission. No chest pain or SOB. BP trending down and controlled this morning. Tolerating med changes. Review of Systems Review of Systems: All systems reviewed & are unremarkable except as noted in HPI & below Physical Exam Physical Exam: General: no acute distress and stated age Head: normocephalic, no masses, lesions, tenderness or abnormalities Eyes: conjunctiva are pink and non-injected, sclera clear Neck: supple, no adenopathy, no bruits, normal jugular venous pulse, no hepatojugular reflux Chest: normal shape and normal respiratory effort Lungs: clear to auscultation and percussion Cardiac Exam: - regular rate & rhythm, no murmurs gallops or rubs - normal S1, normal S2 Pulses: 2(+) throughout Abdomen: abdomen soft, non-tender, no abnormal masses and no hepatosplenomegaly Musculoskeletal: no gait disturbance, no joint inflammation, no deforming arthritis Extremities: no edema and no cyanosis Neuro: grossly normal exam Results & Data ([facility]) Vital Signs (Past 12 Hours) Vital Signs Temp Pulse Pulse Resp BP Pulse Ox 07/13/21 06:50 36.8 C 77 20 138/65 98 07/13/21 04:15 36.9 C 62 18 179/86 H 93 07/13/21 00:06 36.7 C 61 18 188/93 H 96 07/12/21 23:00 57 L Laboratory Results 07/13/21 07/13/21 Range/Units 06:17 06:17 WBC 7.80 (4.8-10.8) K/uL RBC 4.32 L (4.7-6.1) M/uL Hgb 13.5 L (14.0-18.0) g/dL Hct 40.4 L (42-52) % MCV 93.5 (80-100) fL MCH 31.3 (25-34) pg MCHC 33.4 (32-36) g/dL RDW Std Deviation 45.6 (36.4-46.3) fL RDW Coeff of Preethi 13.2 (11.5-14.5) % Plt Count 221 (130-400) K/uL MPV 10.0 (7.4-10.4) fL Sodium 140 (136-145) mmol/L Potassium 3.8 (3.5-5.1) mmol/L Chloride 111 H (98-107) mmol/L Carbon Dioxide 25 (21-32) mmol/L Anion Gap 4.0 (3-11) BUN 24 H (7-18) mg/dl Creatinine 1.26 (0.6-1.4) mg/dl Est Cr Clr Drug Dosing 62.2 ml/min Est GFR ( Amer) 61.6 ml/min Est GFR (Non-Af Amer) 53.1 ml/min BUN/Creatinine Ratio 18.7 (10-20) Glucose 91 (70-99) mg/dl Calcium 8.9 (8.5-10.1) mg/dl Phosphorus 2.9 (2.5-4.9) mg/dl Magnesium 2.4 (1.8-2.4) mg/dl Diagnostic Findings Telemetry reviewed - Sinus and sinus bradycardia with HR's ranging mid 50's to 70's. No symptomatic bradycardia, high degree AV block, or pauses Echo results reviewed - No significant valvular pathology LV is normal in size Mild concentric LVH LV systolic function is normal. EF 55-60% RV systolic function is normal. LA size is normal RA size is normal. Medications Administered Current Inpatient Medications Acetaminophen (Acetaminophen 325 Mg Tab) 650 mg PO Q4H PRN PRN Reason: Pain or Fever Stop: 08/11/21 02:34 Amlodipine Besylate (Amlodipine Besylate 5 Mg Tab) 5 mg PO QAM [facility] Stop: 08/12/21 08:59 Last Admin: 07/13/21 08:28 Dose: 5 mg Documented by: Heparin Sodium (Porcine) (Heparin Sod 5,000 Unit/0.5 Ml Vial) 5,000 units SQ Q8 [facility] Stop: 08/11/21 05:59 Last Admin: 07/13/21 06:15 Dose: 5,000 units Documented by: Lorazepam (Ativan) 1 mg in 2 mls @ 0.5 mls/min IV Q10M PRN PRN Reason: seizures Stop: 08/11/21 02:34 Multivitamins (Multivitamin Tab) [facility] Stop: 08/11/21 08:59 Last Admin: 07/13/21 08:29 Dose: 1 tab Documented by:
--- NOTE | 2021-07-13 13:40 | Discharge Summary ---
Date of Service July 13, 2021 Admission HPI Per Admitting Provider History obtained from patient, family, and records. History somewhat limited from patient secondary to hearing impairment. Medical history significant for hypertension (currently not on medications), osteoarthritis. Patient was at dining with his buddies at a local grocery/sandwich shop when he became unresponsive for about 10 minutes as per son. May have passed out as per patient. Patient did not fall down. Eyes closed with pulse and breathing as per son. No witnessed seizures although patient left arm somewhat tensed up during event. No witnessed seizures/incontinence as per patient/son. Patient denies headache, chest pain, S OB symptoms. Syncopal event with unrecalled details of few years ago as per patient. Patient awake, responsive and with normal vital signs upon arrival of EMS. Orthostatic vitals at the ER were positive. 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 Admission Exam Per Admitting Provider GENERAL: Comfortable, obese, hard of hearing, no respiratory distress SKIN: Normal color, warm HEENT: [place] palpebral conjunctivae, no ptosis, dry buccal mucosa NECK : Supple, no tenderness CHEST : CTA, no tenderness HEART : RRR, no obvious murmurs ABDOMEN: Some distention, nontender EXTREMITIES : No LE swelling/tenderness, no other conspicuous deformities noted NEUROLOGIC : Coherent, no facial asymmetry, hard of hearing, no other gross focality Principal Diagnosis Hypertensive urgency Syncope Discharge Exam CONSTITUTIONAL: WNWD, vitals as above, generally well-appearing, NAD EYES: EOMI bilaterally, pupils are round and equal bilaterally, normal conjunctivae, no scleral icterus ENT: external ear and nose normal, MMM NECK: trachea midline, MMM RESPIRATORY: clear to auscultation bilaterally, no crackles, rales or wheezes, normal respiratory effort CARDIOVASCULAR: regular rate and rhythm, S1 and 2 heard without murmurs, gallops or rubs, no JVD, no peripheral edema, no carotid bruits CHEST: inspection of chest was normal GASTROINTESTINAL: soft, nontender, ND, no guarding MUSCULOSKELETAL: strength 5/5 throughout, head is normocephalic and atraumatic SKIN: warm and dry NEUROLOGIC: No facial palsy, no dysarthria. Touch, pain and proprioception normal. CN 2-12 grossly intact, no sensory deficit, normal cognition, normal speech, no tremor. PSYCHIATRIC: alert cooperative and oriented to person, place and time. Euthymic mood, makes good eye contact, language grossly intact, recent and remote memory grossly intact. Discharge Data Allergies Allergy/AdvReac Type Severity Reaction Status Date / Time No Known Allergies Allergy Verified 07/11/21 20:30 Consultations 07/11/21 22:02 ED Decision to Admit Stat 07/12/21 13:27 Consult Cardiology Routine Ordered Studies Laboratory Results WBC 7.80 K/uL (4.8-10.8) 07/13/21 06:17 RBC 4.32 M/uL (4.7-6.1) L 07/13/21 06:17 Hgb 13.5 g/dL (14.0-18.0) L 07/13/21 06:17 Hct 40.4 % (42-52) L 07/13/21 06:17 MCV 93.5 fL (80-100) 07/13/21 06:17 MCH 31.3 pg (25-34) 07/13/21 06:17 MCHC 33.4 g/dL (32-36) 07/13/21 06:17 RDW Std Deviation 45.6 fL (36.4-46.3) 07/13/21 06:17 RDW Coeff of Preethi 13.2 % (11.5-14.5) 07/13/21 06:17 Plt Count 221 K/uL (130-400) 07/13/21 06:17 MPV 10.0 fL (7.4-10.4) 07/13/21 06:17 Immature Gran % (Auto) 0.1 % 07/12/21 03:06 Neut % (Auto) 63.7 % 07/12/21 03:06 Lymph % (Auto) 26.0 % 07/12/21 03:06 [place] % (Auto) 6.8 % 07/12/21 03:06 Eos % (Auto) 2.9 % 07/12/21 03:06 Baso % (Auto) 0.5 % 07/12/21 03:06 Neut # (Auto) 5.26 K/uL (1.4-6.5) 07/12/21 03:06 Lymph # (Auto) 2.15 K/uL (1.2-3.4) 07/12/21 03:06 [place] # (Auto) 0.56 K/uL (0.11-0.59) 07/12/21 03:06 Eos # (Auto) 0.24 K/uL (0-0.5) 07/12/21 03:06 Baso # (Auto) 0.04 K/uL (0-0.2) 07/12/21 03:06 Immature Gran # (Auto) 0.01 K/uL (0.00-0.02) 07/12/21 03:06 PT 10.3 Seconds (9.0-12.0) 07/11/21 20:17 INR 1.0 (0.9-1.1) 07/11/21 20:17 APTT 24.2 Seconds (21.0-31.0) 07/11/21 20:17 PTT Ratio 0.9 07/11/21 20:17 Sodium 140 mmol/L (136-145) 07/13/21 06:17 Potassium 3.8 mmol/L (3.5-5.1) 07/13/21 06:17 Chloride 111 mmol/L (98-107) H 07/13/21 06:17 Carbon Dioxide 25 mmol/L (21-32) 07/13/21 06:17 Anion Gap 4.0 (3-11) 07/13/21 06:17 BUN 24 mg/dl (7-18) H 07/13/21 06:17 Creatinine 1.26 mg/dl (0.6-1.4) 07/13/21 06:17 Est Cr Clr Drug Dosing 62.2 ml/min 07/13/21 06:17 Est GFR ( Amer) 61.6 ml/min 07/13/21 06:17 Est GFR (Non-Af Amer) 53.1 ml/min 07/13/21 06:17 BUN/Creatinine Ratio 18.7 (10-20) 07/13/21 06:17 Glucose 91 mg/dl (70-99) 07/13/21 06:17 POC Glucose 114 mg/dl (70-99) H 07/11/21 20:30 Estimat Average Glucose 111 mg/dl 07/11/21 20:17 Hemoglobin A1c 5.5 % (4.5-5.6) 07/11/21 20:17 Lactate 1.2 mmol/L (0.4-2.0) 07/12/21 03:06 Calcium 8.9 mg/dl (8.5-10.1) 07/13/21 06:17 Phosphorus 2.9 mg/dl (2.5-4.9) 07/13/21 06:17 Magnesium 2.4 mg/dl (1.8-2.4) 07/13/21 06:17 Total Bilirubin 0.5 mg/dl (0.2-1) 07/11/21 20:17 Direct Bilirubin 0.1 mg/dl (0-0.2) 07/11/21 20:17 AST 26 U/L (15-37) 07/11/21 20:17 ALT 24 U/L (12-78) 07/11/21 20:17 Alkaline Phosphatase 106 U/L (45-117) 07/11/21 20:17 Total Creatine Kinase 163 U/L (39-308) 07/11/21 20:17 Troponin I < 0.015 ng/ml (0-0.045) 07/11/21 20:17 Total Protein 7.4 gm/dl (6.4-8.2) 07/11/21 20:17 Albumin 3.3 gm/dl (3.4-5.0) L 07/11/21 20:17 Lipase 200 U/L (73-393) 07/11/21 20:17 TSH 2.830 uIu/ml (0.300-4.500) 07/11/21 20:17 Prolactin 9.88 ng/ml 07/11/21 20:17 Urine Color Yellow 07/11/21 22:40 Urine Appearance Clear (Clear) 07/11/21 22:40 Urine pH 5.0 (4.5-7.5) 07/11/21 22:40 Ur Specific [place] 1.015 (1.000-1.030) 07/11/21 22:40 Urine Protein Negative (Negative) 07/11/21 22:40 Urine Glucose (UA) Negative (Negative) 07/11/21 22:40 Urine Ketones Negative (Negative) 07/11/21 22:40 Urine Blood Negative (Negative) 07/11/21 22:40 Urine Nitrite Negative (Negative) 07/11/21 22:40 Urine Bilirubin Negative (Negative) 07/11/21 22:40 Urine Urobilinogen Negative (Negative) 07/11/21 22:40 Ur Leukocyte Esterase Negative (Negative) 07/11/21 22:40 SARS-CoV-2, RNA, NAAT NEGATIVE (NEGATIVE) 07/11/21 22:40 Impressions Chest X-Ray 07/11/21 20:08 XR chest 1V portable CLINICAL HISTORY: ams. Evaluate cardiopulmonary status COMPARISON STUDY: No previous studies for comparison. TECHNIQUE: 1 view of the chest FINDINGS: Single frontal view of the chest demonstrates the cardiomediastinal silhouette to be within normal limits. There is a decreased inspiratory effort with elevation of the hemidiaphragms and crowding of the bronchovascular markings at the lung bases and centrally. The lungs are clear of alveolar opacities. There is no evidence for pleural effusion. There is no evidence for vascular congestion. There is no acute osseous pathology. IMPRESSION: There is a decreased inspiratory effort with otherwise no acute chest disease. ACT 112: Negative or not required by law. Electronically signed by: Eyad Cespedes M.D. 07/11/2021 8:[address] 07/11/21 20:08 CT head/brain wo con CLINICAL HISTORY: syncope vs seizure COMPARISON STUDY: No previous studies for comparison. CT DOSE: 1878.68 mGy.cm TECHNIQUE: Standard CT of the Brain was performed without IV contrast. A dose lowering technique was utilized adhering to the principles of ALARA. FINDINGS: Extraaxial space: There is no evidence for subdural hematoma. There are no extra-axial fluid collections. Ventricles and cisterns: The ventricles are normal in size and configuration. There is no evidence for midline shift or mass effect. Parenchyma: There is no subarachnoid or intraparenchymal hemorrhage. There is no evidence for an acute infarct or cerebral edema. There is homogeneous attenuation of the brain parenchyma. There are no gross mass lesions. Osseous structures: There is no evidence for an acute fracture. The visualized paranasal sinuses are clear. The mastoid air cells are clear bilaterally. Soft tissues: There is no evidence for focal soft tissue swelling. IMPRESSION: No acute intracerebral pathology. ACT 112: Negative or not required by law. Electronically signed by: Eyad Cespedes M.D. 07/11/2021 9:01 PM Brain MRI 07/12/21 14:27 MRI OF THE BRAIN WITHOUT CONTRAST CLINICAL HISTORY: syncope, rule out stroke COMPARISON STUDY: Head CT July 11, 2021. TECHNIQUE: Utilizing a 1.5 Mari magnet and dedicated coil, multiplanar, multiecho imaging of the brain was performed without IV contrast. FINDINGS: There are no foci of restricted diffusion to suggest acute infarct. No acute intracranial hemorrhage, midline shift or mass effect is present. Ventricular system is unremarkable. Basal cisterns are patent. No intracranial masses are identified on this unenhanced exam. Flow-voids for the major intracranial vessels are present. There is moderate atrophy. Calvarial signal is normal. Small amount of fluid within the right mastoid cells is present. There is minimal sinus mucosal thickening. Tiny air-fluid level within the left maxillary sinus is noted. IMPRESSION: No acute intracranial findings. ACT 112: Negative or not required by law. Electronically signed by: Neel Camp M.D. 07/12/2021 6:39 PM The patient is an 81-year-old man Hospital Course (1) Hypertensive urgency: (2) Syncope: (3) Osteoarthritis: Patient is an 81-year-old man who does not follow regularly with a physician who presented after an episode of syncope. He suffered no residual neurologic deficits and was mentating normally prior to arrival to the hospital. 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 A CT scan of his head revealed no acute intracranial abnormality. He experienced no stroke symptoms but out of abundance of caution an MRI of the brain was performed and was also negative for acute intracranial abnormality. An echocardiogram revealed a normal left ventricle with normal left ventricular systolic function and an ejection fraction 55 to 60%. There was mild concentric left ventricular hypertrophy noted. An electroencephalogram was ordered which revealed no evidence of epileptiform activity. Notably there was no loss of bladder function during the time of syncope and no convulsive activity noted by witnesses. Seizure is very unlikely as an etiology. His blood pressure was noted to be in the 220s systolic on arrival and remained elevated. He had a history of hypertension and has been off antihypertensives for the past couple of years. He was given intravenous hydralazine and treated with oral amlodipine with improvement in his blood pressure. Cardiology was consulted and noted he had no orthostasis. His cardiac markers were negative an d his echocardiogram revealed no significant valvular pathology and a normal right and left ventricular systolic function. He also remains normal with normal sinus rhythm since he was admitted to the hospital. As a result of his conduction system disease it is likely the patient may need a pacemaker in the future. A long-term monitor for 2 weeks was recommended after discharge and this was orchestrated through the [facility] cardiology clinic. A 4 to 6-week cardiology follow-up was also recommended to reassess blood pressure and review monitor findings. At time of discharge patient was hemodynamically stable and afebrile and tolerating p.o. He was mentating and ambulating at baseline and was stable for discharge to home. Notably he was also evaluated by physical and occupational therapy who recommended return to home. Close primary care follow-up as recommended. Total Time Total Time Spent Total Time Spent (In Minutes): 60 Discharge Plan Discharge Items Patient Disposition: Home - Home Health Services Reason For Visit: UNRESPONSIVENESS Discharge Diagnosis: Hypertensive urgency Syncope Condition on Discharge: Good Activity: Resume your previous activity Non-emergency contact: Primary Care Provider Call non-emergency contact if: you have any medication questions and your symptoms worsen Follow-up/Referrals: MORAIMA ARECHIGA PA [Primary Care Provider] - 07/16/21 12:45 pm Diet: Low Sodium (2gm) Addtl Attending Provider Instructions: Please take all medications as instructed on discharge list below. While in the hospital your blood pressure was noted to be elevated, therefore, you have been started on a low-dose blood pressure medication to take once daily. Please follow-up with your primary care doctor within 1 week of discharge from the hospital to repeat your blood pressure check and ensure you are doing well on this medication. A common side effect of this medicine is lower extremity swelling. If you experience that please notify your doctor immediately. You were also found to have conduction blocks on your EKG. As a result you were seen by [facility] cardiology while hospitalized. Based on this evaluation it is recommended that you undergo an outpatient event monitor called a ZIO monitor for 2 weeks after returning home. You should also have a 4 to 6-week cardiology office visit to review monitor findings and reassess blood pressure. This will be coordinated through the [facility] office where you can pickle solution maker your ZIO monitor and arrange cardiac follow-up there. You will be contacted with these appointments at a later time. It was a pleasure taking care of you! Please call if you have any questions or problems. You can reach a [facility] hospitalist on duty at [facility] 24 hours a day by calling [phone]. Take care of yourself. Ashley Morales DO [facility]ist Pending Studies at Discharge: No Stand-Alone Forms: [facility] Medications and DC Order Prescriptions: New amlodipine [Norvasc] 5 mg Tablet 5 mg PO QAM Qty: 30 RF: 0 Continued multivitamin Tablet 1 tab PO DAILY RF: 0 ascorbic acid (vitamin C) [Vitamin C] 500 mg Tablet 0 mg PO DAILY RF: 0 ibuprofen 200 mg Tablet 400 mg PO DIRECTED PRN (Reason: Pain) RF: 0 glucosamine-chondroitin [Osteo Bi-Flex] 250-200 mg Tablet 1 tab PO DAILY RF: 0 Discharge Orders: Discharge Order (Routine); Ordered 07/13/21 Ordered By: Ashley Morales Admission Data Admit Date/Time: 07/12/21 13:37 Attending Provider: Ashley Morales Admit Provider: Gregor Adkins Primary Care Provider: MORAIMA ARECHIGA Other Providers: Gregor Adkins ; Donovan Chaudhry
== END 2021-07-13 15:20 | disposition home health service (06) | DRG 305 ==
LOC: ED 19:53 → 2N 19:53 → SUATTDRO 23:08 → 2N 07-12 01:54